=== PATIENT | female | born 1950 | race Two or more races ===

== ENCOUNTER 2017-03-14 09:28 | Day surgery (SDC) | payer MEDICARE, OTHER ==
--- NOTE | 2017-03-13 16:13 | Pre-Procedure Note/Attestation ---
Pre-Procedure Note/Attestation Complete Prior to Procedure Planned Procedure: left - Removal of cataract and placement of intraocular lens , left eye Procedure Narrative: Removal of cataract and placement of intraocular lens, left eye Indications for Procedure Pre-Operative Diagnosis: cataract, combined, left eye Attestation I attest that I discussed the nature of the procedure; its benefits; risks and complications; and alternatives (and the risks and benefits of such alternatives ), prior to the procedure, with the patient (or the patient's legal energy conservation representative). I attest that, if there was a reasonable possibility of needing a blood transfusion, the patient (or the patient's legal energy conservation representative) was given the [place] Department of [facility] Services standardized written summary, pursuant to the [place] Blood Safety Act ([place] Health and Safety Code # 1645, as amended). I attest that I re-evaluated the patient just prior to the surgery and that there has been no change in the patient's H&P, except as documented below: Alfredo Russell MD Mar 13, 2017 16:13
[~2017-03-14] VITALS: Ht 167.6 cm; Wt 65.8 kg
[2017-03-14] VITALS (9 sets, daily range): BP systolic 120–141; BP diastolic 76–87
[2017-03-14] MEDS ORDERED: Sterile Water Irrig 1000ml IRRIG ONE (09:29)
[2017-03-14] MEDS ORDERED: Propofol 200mg/20ml IV ONE (09:29)
[2017-03-14] MEDS ORDERED: Lidocaine 1% MPF 10mg/ml 5ml ONE ×2 (09:29→10:47)
[2017-03-14] MEDS ORDERED: LR 1000ml ONE (09:29)
[2017-03-14] MEDS ORDERED: Midazolam 2mg/2ml Inj ONE (09:29)
[2017-03-14] MEDS ORDERED: NS Irrig 1000ml ONE (09:29)
[2017-03-14] MEDS ORDERED: Vigamox Opth Soln 3ml ONE (09:51)
[2017-03-14] MEDS ORDERED: Cyclopentolate 1% Opth Sol 2ml ONE (09:51)
[2017-03-14] MEDS ORDERED: Phenylephrine 10% Opth Soln 5ml ONE (09:51)
[2017-03-14] MEDS ORDERED: Akten 3.5% 1ml Btl ONE (09:55)
[2017-03-14] MEDS ORDERED: Tropicamide 1% Opth 15ml Soln ONE (09:55)
[2017-03-14] MEDS: Vigamox Opth Soln 3ml LEFT EYE SCH ×3 (10:03→10:24)
[2017-03-14] MEDS: Akten 3.5% 1ml Btl LEFT EYE SCH ×3 (10:03→10:23)
[2017-03-14] MEDS: Cyclopentolate 1% Opth Sol 2ml LEFT EYE SCH ×3 (10:03→10:24)
[2017-03-14] MEDS: Phenylephrine 10% Opth Soln 5ml LEFT EYE SCH ×3 (10:04→10:24)
[2017-03-14] MEDS: Tropicamide 1% Opth 15ml Soln LEFT EYE SCH ×3 (10:04→10:23)
[2017-03-14] MEDS ORDERED: NKM (10:17)
[2017-03-14] MEDS ORDERED: Fluorescein Strips ONE (10:47)
[2017-03-14] MEDS ORDERED: Pred Forte 1% Opth Susp 1ml ONE (10:47)
[2017-03-14] MEDS ORDERED: Timolol 0.5% Op Soln 2.5ml ONE (10:47)
[2017-03-14] MEDS ORDERED: Maxitrol Opth Oint 3.5gm ONE (10:47)
[2017-03-14] MEDS ORDERED: BSS 500ml btl ONE ×2 (10:47→12:05)
[2017-03-14] MEDS ORDERED: Lidocaine 4% Amp ONE (10:48)
[2017-03-14] MEDS ORDERED: EPINEPHrine 1mg/1ml Amp ONE ×2 (10:48→12:05)
[2017-03-14] MEDS ORDERED: Carbachol 0.01% Op Soln 1.5ml vial ONE (10:48)
[2017-03-14] MEDS ORDERED: Tetracaine 0.5% Opth 4ml Soln ONE (10:48)
[2017-03-14] MEDS ORDERED: Povidone-Iodine 5% opth solution ONE (10:48)
[2017-03-14] MEDS ORDERED: Dexamethasone 4mg/ml vial ONE (10:48)
[2017-03-14] MEDS ORDERED: BSS 15ml BTL ONE (10:49)
[2017-03-14] MEDS ORDERED: Sodium Hyaluronate 10 mg/ml 0.85ml ONE ×2 (10:49→11:58)
[2017-03-14] MEDS ORDERED: Acetylcholine Injection (OR) ONE (10:49)
[2017-03-14] MEDS ORDERED: LR 1000ml 1,000 ML IVLG SCH (11:21)
--- NOTE | 2017-03-14 11:24 | Anethesia Preoperative Eval ---
Anesthesia Pre-op PMH/ROS General Date of Evaluation: Mar 14, 2017 Anesthesiologist: Kvng ASA Score: ASA 3 Mallampati Score Class I : Soft palate, uvula, fauces, pillars visible Class II: Soft palate, uvula, fauces visible Class III: Soft palate, base of uvula visible Class IV: Only hard plate visible Mallampati Classification: Class II Surgeon: Drew Diagnosis: Cataract OS Surgical Procedure: Cat Ext IOL OS Anesthesia History: none Family History: no anesthesia problems Allergies: Coded Allergies: No Known Allergies (Unverified , 03/13/17) Medications: see eMAR Past Medical History Cardiovascular: Reports: HTN Gastrointestinal/Genitourinary: Reports: other - Fibroids HEENT: Reports: cataract (L), cataract (R), [place] (L), [place] (R) PSxH Narrative: RICHARD Anesthesia Pre-op Phys. Exam Physician Exam Last Vital Signs Date Time Temp Pulse Resp B/P (MAP) Pulse Ox O2 Delivery O2 Flow Rate FiO2 03/14/17 10:13 98.7 73 18 141/87 98 Room Air Constitutional: NAD Neurologic: CN 2-12 intact Cardiovascular: RRR Respiratory: CTA Gastrointestinal: S/NT/ND Airway Exam Mallampati Score: Class II MO: full ROM: full Teeth: missing, intact Anesthesia Pre-op A/P Risk Assessment & Plan Assessment: ASA 3 Plan: GA Status Change Before Surgery: Cholo Mccartney MD Mar 14, 2017 11:24
--- NOTE | 2017-03-14 11:25 | 48 Hour Post Anesthesia Eval ---
Post Anesthesia Evaluation Procedure: Cat Ext IOL OS Date of Evaluation: Mar 14, 2017 Time of Evaluation: 14:42 Blood Pressure Systolic: 141 0: 89 Pulse Rate: 74 Respiratory Rate: 18 Temperature (Fahrenheit): 98.4 O2 Sat by Pulse Oximetry: 99 Airway: patent Nausea: No Vomiting: No Pain Intensity: 1 Hydration Status: adequate Cardiopulmonary Status: Stable Mental Status/LOC: patient returned to baseline Follow-up Care/Observations: 0 Post-Anesthesia Complications: 0 Follow-up care needed: ready to discharge Cholo Calderon MD Mar 14, 2017 11:25
--- NOTE | 2017-03-14 11:25 | Immediate Post-Op Evaluation ---
Immediate Post-Op Evalulation Immediate Post-Op Evalulation Procedure: Cat Ext IOL OS Date of Evaluation: Mar 14, 2017 Time of Evaluation: 12:22 IV Fluids: 1000 LR Blood Products: 0 Estimated Blood Loss: 1 Urinary Output: 0 Blood Pressure Systolic: 138 Blood Pressure Diastolic: 87 Pulse Rate: 72 Respiratory Rate: 16 O2 Sat by Pulse Oximetry: 100 Temperature (Fahrenheit): 97.5 Pain Score (1-10): 1 Nausea: No Vomiting: No Complications 0 Patient Status: awake, reacts, patent, none Hydration Status: adequate Cholo Calderon MD Mar 14, 2017 11:25
[2017-03-14] MEDS ORDERED: Midazolam 2mg/2ml Inj IVP PRN (11:30)
[2017-03-14] MEDS ORDERED: fentaNYL 100 mcg/2 mL IV PRN (11:30)
[2017-03-14] MEDS ORDERED: oxyCODONE HCL/Acetaminophen 5/325mg ORAL PRN (11:30)
[2017-03-14] MEDS ORDERED: LORazepam Inj 2mg/ml 1ml IV PRN (11:30)
[2017-03-14] MEDS ORDERED: Labetalol 5mg/ml 20ml vial IV PRN (11:30)
[2017-03-14] MEDS ORDERED: Norco 5mg/325mg tab ORAL PRN (11:30)
[2017-03-14] MEDS ORDERED: DiphenhydrAMINE 50mg/ml Inj IVP PRN (11:30)
[2017-03-14] MEDS ORDERED: Atropine Inj 1mg/10ml Syr IV PRN (11:30)
[2017-03-14] MEDS ORDERED: Ketorolac 60mg Inj IV PRN (11:30)
[2017-03-14] MEDS ORDERED: Hydromorphone 0.5mg/0.5ml inj IVP PRN (11:30)
[2017-03-14] MEDS ORDERED: Ketorolac 30mg Inj IV PRN (11:30)
[2017-03-14] MEDS ORDERED: HYDROcodone/Acetamin 7.5/325 tab ORAL PRN (11:30)
--- NOTE | 2017-03-14 12:22 | Discharge Instructions ---
Discharge Instructions Discharge Instructions Follow Up Orders Wear eye shield at all times except to place eye drops Continue pre op eye drops Followup in Dr Russell's office tomorrow For Congestive Heart Failure Reminder Report to your physician any weight gain of 5 pounds or more in one week. Alfredo Russell MD Mar 14, 2017 12:22
--- NOTE | 2017-03-14 12:24 | Brief Operative Note ---
Immediate Post Operative Note Operative Note Pre-op Diagnosis: cataract, combined, left eye Procedure: Phaco pc iol, OS Post-op Diagnosis: same as pre-op Surgeon: Sundeep Russell MD Brush Finisher: none Anesthesiologist: Dr Rodriguez Anesthesia: local, MAC Specimen: none Complications: none Fluids: minimal Estimated Blood Loss: minimal Implant(s) used?: Yes - singletary zcb00 25.0 Alfredo Russell MD Mar 14, 2017 12:24
--- NOTE | 2017-03-20 10:15 | Operative Note - Dictated ---
DATE OF OPERATION: 03/14/2017 SURGEON: Alfredo Russell M.D. CUT PRESSMAN SURGEON: None. ANESTHESIOLOGIST: Cholo Calderon M.D. ANESTHESIA: Local/standby/monitored anesthesia care. PREOPERATIVE DIAGNOSIS: Cataract, nuclear, cortical, left eye. POSTOPERATIVE DIAGNOSIS: Cataract, nuclear, cortical, left eye. PROCEDURE: 1. Phacoemulsification of cataract, left eye. 2. Placement of posterior chamber intraocular lens, left eye (model Nair ZCB00, power 25.0). SPECIMENS: None. COMPLICATIONS: None. INDICATIONS FOR SURGERY: The patient has had painless progressive decrease in visual acuity in the left eye secondary to cataract. The patient understands the risks of surgery including infection, bleeding, need for further surgery, loss of vision, no improvement in vision, loss of the eye, loss of life, glaucoma, retinal detachment, understands these risks and elected to proceed with surgery. FINDINGS: The patient had a +3 nuclear sclerotic cataract as well as +2 cortical cataract. OPERATIVE NOTE: After informed consent was obtained, the patient was brought into the operating room and placed in supine position. Cardiac and respiratory monitors were attached. A time-out was performed and all criteria were met and everyone in the room agreed. The left eye was then draped and prepped in sterile manner for ocular surgery. A lid speculum was placed in the eye. A 1% lidocaine preservative-free was injected at the 2 o'clock limbus. A conjunctiva peritomy from approximately 1:30 to 2:30 was made and dissected posteriorly. Hemostasis was maintained with bipolar cautery. A 2.8 mm limbal incision was made centered approximately 2 o'clock and dissected anteriorly. A paracentesis was made at approximately 5:30 and Shugarcaine was injected into the anterior chamber followed by Healon. The anterior chamber was then entered using a 2.6 mm keratome through the limbal incision. An anterior capsulorrhexis was then performed. Hydrodissection and hydrodelineation of the lens was then performed. The lens was then phacoemulsified using a divide and conquer four-quadrant technique. Residual cortical material was then aspirated. Healon was injected into the anterior chamber and capsular bag. The lens was taken from its package, placed into the cartridge, and the tip of the cartridge was placed through the limbal incision and the lens was injected into the capsular bag and centered nicely with a Sinskey hook. Healon was then aspirated from the anterior chamber and capsular bag. The lens was checked and noted to have the optic and both haptics within the capsular bag. The wound was checked and found to be watertight. The conjunctiva was then closed with forceps cautery. The lid speculum and drapes removed from the eye. Drops of ciprofloxacin and Pred Forte were applied to the eye followed by a drop of diluted Betadine, which was then irrigated and then Maxitrol ointment was applied to the eye and then a shield. The patient tolerated the procedure well and left the operating room awake, alert, and in stable condition. Alfredo Russell M.D. DR: GLORIA JOB#: [id number] CC:
== END 2017-03-14 14:10 | disposition home or self-care (01) ==
LOC: SUR 09:28
DX: H25.12 Age-related nuclear cataract, left eye (principal); H25.012 Cortical age-related cataract, left eye; I10 Essential (primary) hypertension
CPT/HCPCS: 66984; J0171; J1100; J2250; J2704; J7120; V2632; 94003; 94150

== ENCOUNTER 2017-06-20 09:59 | Day surgery (SDC) | payer MEDICARE, OTHER ==
--- NOTE | 2017-06-19 23:20 | Pre-Procedure Note/Attestation ---
Pre-Procedure Note/Attestation Complete Prior to Procedure Planned Procedure: right - Removal of cataract and placement of intraocular lens, right eye Procedure Narrative: Removal of cataract and placement of intraocular lens, right eye Indications for Procedure Pre-Operative Diagnosis: Cataract, combined, right eye Attestation I attest that I discussed the nature of the procedure; its benefits; risks and complications; and alternatives (and the risks and benefits of such alternatives ), prior to the procedure, with the patient (or the patient's legal enrollment representative). I attest that, if there was a reasonable possibility of needing a blood transfusion, the patient (or the patient's legal enrollment representative) was given the [place] Department of Health Services standardized written summary, pursuant to the [place] Blood Safety Act ([place] Health and Safety Code # 1645, as amended). I attest that I re-evaluated the patient just prior to the surgery and that there has been no change in the patient's H&P, except as documented below: Alfredo Russell MD Jun 19, 2017 23:20
[2017-06-20] VITALS (9 sets, daily range): BP systolic 140–161; BP diastolic 82–92
[~2017-06-20] VITALS: Ht 167.6 cm; Wt 65.8 kg
[~2017-06-20 09:59] MED LIST: NKM; Pred Forte 1% Opth Susp 1ml RIGHT EYE ONE
[2017-06-20] MEDS ORDERED: Pred Forte 1% Opth Susp 1ml ONE (11:05)
[2017-06-20] MEDS ORDERED: Phenylephrine 10% Opth Soln 5ml ONE (11:05)
[2017-06-20] MEDS ORDERED: Akten 3.5% 1ml Btl ONE (11:05)
[2017-06-20] MEDS ORDERED: Cyclopentolate 1% Opth Sol 2ml ONE (11:05)
[2017-06-20] MEDS ORDERED: Ciprofloxacin Opth Soln 2.5ml ONE (11:05)
[2017-06-20] MEDS ORDERED: Tropicamide 1% Opth 15ml Soln ONE (11:12)
[2017-06-20] MEDS: Akten 3.5% 1ml Btl RIGHT EYE SCH ×3 (11:15→11:27)
[2017-06-20] MEDS: Tropicamide 1% Opth 15ml Soln RIGHT EYE SCH ×3 (11:15→11:26)
[2017-06-20] MEDS: Phenylephrine 10% Opth Soln 5ml RIGHT EYE SCH ×3 (11:15→11:26)
[2017-06-20] MEDS: Cyclopentolate 1% Opth Sol 2ml RIGHT EYE SCH ×3 (11:15→11:26)
[2017-06-20] MEDS: Ciprofloxacin Opth Soln 2.5ml RIGHT EYE SCH ×3 (11:15→11:26)
[2017-06-20] MEDS ORDERED: Midazolam 2mg/2ml Inj ONE (14:57)
[2017-06-20] MEDS ORDERED: LR 1000ml ONE (15:00)
[2017-06-20] MEDS ORDERED: Sterile Water Irrig 1000ml IRRIG ONE (15:00)
[2017-06-20] MEDS ORDERED: NS Irrig 1000ml ONE (15:00)
[2017-06-20] MEDS ORDERED: Alfentanil 2ml Inj ONE (15:00)
[2017-06-20] MEDS ORDERED: Propofol 200mg/20ml IV ONE (15:00)
[2017-06-20] MEDS ORDERED: LR 1000ml 1,000 ML IVLG SCH (15:08)
[2017-06-20] MEDS ORDERED: LORazepam Inj 2mg/ml 1ml IV PRN (15:15)
[2017-06-20] MEDS ORDERED: Ketorolac 30mg Inj IV PRN ×2 (15:15)
[2017-06-20] MEDS ORDERED: oxyCODONE HCL/Acetaminophen 5/325mg ORAL PRN (15:15)
[2017-06-20] MEDS ORDERED: Hydromorphone 0.5mg/0.5ml inj IVP PRN (15:15)
[2017-06-20] MEDS ORDERED: DiphenhydrAMINE 50mg/ml Inj IVP PRN (15:15)
[2017-06-20] MEDS ORDERED: Norco 5mg/325mg tab ORAL PRN (15:15)
[2017-06-20] MEDS ORDERED: Labetalol 5mg/ml 20ml vial IV PRN (15:15)
[2017-06-20] MEDS ORDERED: fentaNYL 100 mcg/2 mL IV PRN (15:15)
[2017-06-20] MEDS ORDERED: Atropine Inj 1mg/10ml Syr IV PRN (15:15)
[2017-06-20] MEDS ORDERED: Midazolam 2mg/2ml Inj IVP PRN (15:15)
[2017-06-20] MEDS ORDERED: HYDROcodone/Acetamin 7.5/325 tab ORAL PRN (15:15)
--- NOTE | 2017-06-20 15:16 | Anethesia Preoperative Eval ---
Anesthesia Pre-op PMH/ROS General Date of Evaluation: Jun 20, 2017 Time of Evaluation: 14:54 Anesthesiologist: Kvng ASA Score: ASA 2 Mallampati Score Class I : Soft palate, uvula, fauces, pillars visible Class II: Soft palate, uvula, fauces visible Class III: Soft palate, base of uvula visible Class IV: Only hard plate visible Mallampati Classification: Class II Surgeon: Drew Diagnosis: Cat OD Surgical Procedure: Cat Ext IOL OD Anesthesia History: none Family History: no anesthesia problems Allergies: Coded Allergies: No Known Allergies (Unverified , 06/20/17) Medications: see eMAR Past Medical History Neurologic/Psychiatric: Reports: depression/anxiety HEENT: Reports: cataract (L), cataract (R), [place] (L) PSxH Narrative: RICHARD, Myomectomy Anesthesia Pre-op Phys. Exam Physician Exam Last Vital Signs Date Time Temp Pulse Resp B/P (MAP) Pulse Ox O2 Delivery O2 Flow Rate FiO2 06/20/17 11:19 97.9 66 18 141/85 96 Room Air 97.9 Constitutional: NAD Neurologic: CN 2-12 intact Cardiovascular: RRR Respiratory: CTA Gastrointestinal: S/NT/ND Airway Exam Mallampati Score: Class II MO: full ROM: full Teeth: intact Anesthesia Pre-op A/P Risk Assessment & Plan Assessment: ASA 2 Plan: TIVA Status Change Before Surgery: Cholo Mccartney MD Jun 20, 2017 15:16
[2017-06-20] MEDS ORDERED: Lidocaine 1% MPF 10mg/ml 5ml ONE (15:17)
--- NOTE | 2017-06-20 15:18 | 48 Hour Post Anesthesia Eval ---
Post Anesthesia Evaluation Procedure: Cat Ext IOL OD Date of Evaluation: Jun 20, 2017 Time of Evaluation: 18:23 Blood Pressure Systolic: 148 0: 91 Pulse Rate: 76 Respiratory Rate: 18 Temperature (Fahrenheit): 97.9 O2 Sat by Pulse Oximetry: 100 Airway: patent Nausea: No Vomiting: No Pain Intensity: 1 Hydration Status: adequate Cardiopulmonary Status: Stable Mental Status/LOC: patient returned to baseline Follow-up Care/Observations: 0 Post-Anesthesia Complications: 0 Follow-up care needed: ready to discharge Cholo Calderon MD Jun 20, 2017 15:18
--- NOTE | 2017-06-20 15:18 | Immediate Post-Op Evaluation ---
Immediate Post-Op Evalulation Immediate Post-Op Evalulation Procedure: Cat Ext IOL OD Date of Evaluation: Jun 20, 2017 Time of Evaluation: 16:18 IV Fluids: 300 LR Blood Products: 0 Estimated Blood Loss: 1 Urinary Output: 0 Blood Pressure Systolic: 155 Blood Pressure Diastolic: 92 Pulse Rate: 71 Respiratory Rate: 16 O2 Sat by Pulse Oximetry: 100 Temperature (Fahrenheit): 97.9 Pain Score (1-10): 1 Nausea: No Vomiting: No Complications 0 Patient Status: awake, patent, none Hydration Status: adequate Cholo Calderon MD Jun 20, 2017 15:18
[2017-06-20] MEDS ORDERED: Dexamethasone 4mg/ml vial ONE (15:19)
[2017-06-20] MEDS ORDERED: EPINEPHrine 1mg/1ml Amp ONE (15:19)
[2017-06-20] MEDS ORDERED: Lidocaine 4% Amp ONE (15:19)
[2017-06-20] MEDS ORDERED: Maxitrol Opth Oint 3.5gm ONE (15:19)
[2017-06-20] MEDS ORDERED: BSS 15ml BTL ONE (15:20)
[2017-06-20] MEDS ORDERED: BSS 500ml btl ONE (15:20)
[2017-06-20] MEDS ORDERED: Tetracaine 0.5% Opth 4ml Soln ONE (15:20)
[2017-06-20] MEDS ORDERED: Povidone-Iodine 5% opth solution ONE (15:20)
[2017-06-20] MEDS ORDERED: Sodium Hyaluronate 10 mg/ml 0.85ml ONE ×2 (15:20→15:44)
--- NOTE | 2017-06-20 16:08 | Discharge Instructions ---
Discharge Instructions Discharge Instructions Follow Up Orders Wear shield at all times except to place eye drops Continue preoperative eye drops Followup tomorrow in Dr Russell's office at 12:00 Return to Work/School on: Jun 20, 2017 For Congestive Heart Failure Reminder Report to your physician any weight gain of 5 pounds or more in one week. Alfredo Russlel MD Jun 20, 2017 16:08
--- NOTE | 2017-06-20 16:10 | Brief Operative Note ---
Immediate Post Operative Note Operative Note Pre-op Diagnosis: Cataract, combined, right eye Procedure: Phaco PC IOL, OD Post-op Diagnosis: same as pre-op Surgeon: Sundeep Russell MD Attraction Attendant: none Anesthesiologist: Dr Calderon Anesthesia: local, MAC Specimen: none Complications: none Condition: stable Fluids: as noted Implant(s) used?: Yes - tectabatha zcb00 22.5 Alfredo Russell MD Jun 20, 2017 16:10
--- NOTE | 2017-06-22 19:30 | Operative Note - Dictated ---
DATE OF OPERATION: 06/20/2017 SURGEON: Alfredo Russell M.D. LABOR COMMISSIONER SURGEON: None. ANESTHESIOLOGIST: Cholo Calderon M.D. ANESTHESIA: Local/standby/monitored anesthesia care. PREOPERATIVE DIAGNOSIS: Cataract, combined, right eye. POSTOPERATIVE DIAGNOSIS: Cataract, combined, right eye. PROCEDURES: 1. Phacoemulsification of cataract, right eye. 2. Placement of posterior chamber intraocular lens, right eye (model ZCB00, power 22.5). SPECIMENS: None. COMPLICATIONS: None. INDICATION FOR SURGERY: The patient has had the painless progressive decrease in visual acuity in the right eye secondary to the cataract. The patient understands the risk of surgery including infection, bleeding, need for further surgery, loss of vision, no improvement in vision, loss of the eye, loss of life, glaucoma, retinal detachment, and understands these risks and elects to proceed with surgery. FINDINGS: The patient had a +2 to +3 nuclear cataract as well as a +2 cortical cataract. OPERATIVE NOTE: After informed consent was obtained, the patient was brought into the operating room and placed in the supine position. Cardiac and respiratory monitors were attached. A time-out was performed and all criteria were met and everyone in the room agreed. The right eye was then draped and prepped in sterile manner for ocular surgery. A lid speculum was placed in the eye. A 1% lidocaine preservative-free was injected at the approximate 9 o'clock limbus. A conjunctival peritomy from approximately 8:30 to 9:30 was made and dissected posteriorly. Hemostasis was maintained with bipolar cautery. A 2.8 mm limbal incision was made centered at approximately 9 o'clock and dissected anteriorly. A paracentesis was made at 12 o'clock. Shugarcaine was injected into the anterior chamber followed by Healon. The anterior chamber was then entered using a 2.8 mm keratome through the limbal incision. An anterior capsulorrhexis was then performed. Hydrodissection and hydrodelineation of the lens was then performed. The lens was then phacoemulsified using divide and conquer four-quadrant technique. Residual cortical material was then aspirated. The lens was taken from its package, placed into the cartridge, and Healon was injected into the capsular bag and anterior chamber. The tip of the cartridge was placed through the limbal incision and the lens was injected into the capsular bag and centered nicely with a Sinskey hook. Healon was aspirated from the anterior chamber and capsular bag. One 10-0 nylon interrupted suture was placed through the limbal incision and the wound also hydrated and closed as well as the paracentesis. The lens was noted to have both haptics as well as the optic in the capsular bag and the intraocular lens was aligned along the 180 degree meridian. Alfredo Russell M.D. DR: JIGNA JOB#: [id number] CC:
== END 2017-06-20 17:46 | disposition home or self-care (01) ==
LOC: SUR 09:59
DX: H25.11 Age-related nuclear cataract, right eye (principal); H25.011 Cortical age-related cataract, right eye; F32.9 Major depressive disorder, single episode, unspecified; F41.9 Anxiety disorder, unspecified
CPT/HCPCS: 66984; J0171; J1100; J2250; J2704; J3490; J7120; V2632; 94003; 94150

== ENCOUNTER 2018-04-03 10:19 | Day surgery (SDC) | payer MEDICARE, OTHER ==
[2018-04-03] VITALS (11 sets, daily range): BP systolic 128–141; BP diastolic 83–92
[~2018-04-03] VITALS: Ht 165.1 cm; Wt 65.8 kg
--- NOTE | 2018-04-03 09:12 | Pre-Procedure Note/Attestation ---
Pre-Procedure Note/Attestation Complete Prior to Procedure Planned Procedure: right Procedure Narrative: Hammertoe correction fourth right digit Indications for Procedure Pre-Operative Diagnosis: Hammertoe deformity fourth right digit Attestation I attest that I discussed the nature of the procedure; its benefits; risks and complications; and alternatives (and the risks and benefits of such alternatives ), prior to the procedure, with the patient (or the patient's legal field marketing representative). I attest that, if there was a reasonable possibility of needing a blood transfusion, the patient (or the patient's legal field marketing representative) was given the [facility] standardized written summary, pursuant to the [place] Blood Safety Act ([place] Health and Safety Code # 1645, as amended). I attest that I re-evaluated the patient just prior to the surgery and that there has been no change in the patient's H&P, except as documented below: Boni Mayorga DPM Apr 03, 2018 09:12
[~2018-04-03 10:19] MED LIST changes: -Pred Forte 1% Opth Susp 1ml RIGHT EYE ONE
--- NOTE | 2018-04-03 10:23 | Anethesia Preoperative Eval ---
Anesthesia Pre-op PMH/ROS General Date of Evaluation: Apr 03, 2018 Anesthesiologist: Robert ASA Score: ASA 2 Mallampati Score Class I : Soft palate, uvula, fauces, pillars visible Class II: Soft palate, uvula, fauces visible Class III: Soft palate, base of uvula visible Class IV: Only hard plate visible Mallampati Classification: Class II Surgeon: Mukesh Diagnosis: Right hammertoe 4th digit Surgical Procedure: Right hammertoe correction, 4th digit Anesthesia History: none Family History: no anesthesia problems Allergies: Coded Allergies: No Known Allergies (Unverified , 06/20/17) Medications: see eMAR Patient NPO?: Yes NPO Date: Apr 03, 2018 NPO Time: 20:00 Past Medical History Cardiovascular: Denies: HTN, CAD, NM, valve dz, arrhythmia, other Pulmonary: Denies: asthma, COPD, [place], other Gastrointestinal/Genitourinary: Denies: GERD, CRI, ESRD, other Neurologic/Psychiatric: Reports: depression/anxiety; Denies: dementia, CVA, TIA, other Endocrine: Denies: DM, hypothyroidism, steroids, other HEENT: Reports: [place] (L); Denies: cataract (L), cataract (R), glaucoma, [place] (R), other Hematology/Immune: Denies: anemia, DVT, bleeding disorder, other Musculoskeletal/Integumentary: Denies: OA, RA, DJD, DDD, edema, other PSxH Narrative: RICHARD, bilateral cataract sx Anesthesia Pre-op Phys. Exam Physician Exam see chart Constitutional: NAD Cardiovascular: RRR Respiratory: CTA Airway Exam Mallampati Score: Class II MO: full ROM: full Teeth: intact Anesthesia Pre-op A/P Labs see chart Studies Pre-op Studies: EKG - sr Risk Assessment & Plan Assessment: ASA II Plan: MAC Status Change Before Surgery: No Pre-Antibiotics Drug: Ancef 1g Given Within 1 Hr of Incision: Yes Christiane Figueroa MD Apr 03, 2018 10:23
[2018-04-03] MEDS ORDERED: Bupivacaine 0.5% 10ml INJ ONE (10:39)
[2018-04-03] MEDS ORDERED: Lidocaine 1% Plain 30 ml INJ ONE (10:39)
[2018-04-03] MEDS ORDERED: Dexamethasone 4mg/ml vial ONE (10:39)
[2018-04-03] MEDS ORDERED: WELLBUTRIN SR100 MG ORAL (10:57)
[2018-04-03] MEDS ORDERED: Lidocaine 1% MPF 10mg/ml 5ml ONE (11:24)
[2018-04-03] MEDS ORDERED: Propofol 200mg/20ml IV ONE (11:24)
[2018-04-03] MEDS ORDERED: fentaNYL 100 mcg/2 mL IV PRN (11:30)
[2018-04-03] MEDS ORDERED: Hydromorphone 0.5mg/0.5ml inj IVP PRN (11:30)
[2018-04-03] MEDS ORDERED: LR 1000ml ONE (11:30)
[2018-04-03] MEDS ORDERED: Midazolam 2mg/2ml Inj IVP PRN (11:30)
[2018-04-03] MEDS ORDERED: Metoclopramide 10mg/2ml Inj IVP PRN (11:30)
[2018-04-03] MEDS ORDERED: LORazepam Inj 2mg/ml 1ml IV PRN (11:30)
[2018-04-03] MEDS ORDERED: Sterile Water Irrig 1000ml IRRIG ONE (11:30)
[2018-04-03] MEDS ORDERED: Ketorolac 30mg Inj IV PRN (11:30)
[2018-04-03] MEDS ORDERED: NS Irrig 1000ml ONE (11:30)
[2018-04-03] MEDS ORDERED: LR 1000ml 1,000 ML IVLG SCH (11:30)
[2018-04-03] MEDS ORDERED: DiphenhydrAMINE 50mg/ml Inj IVP PRN (11:30)
--- NOTE | 2018-04-03 12:21 | Brief Operative Note ---
Immediate Post Operative Note Operative Note Pre-op Diagnosis: Hammertoe deformity fourth right digit Procedure: Hammetoe correction fourth right digit Post-op Diagnosis: same as pre-op Surgeon: Mukesh Anesthesiologist: Kamlesh Anesthesia: moderate sedation Specimen: yes Complications: none Condition: stable Fluids: 250 Estimated Blood Loss: none Drains: none Implant(s) used?: Yes Boni Mayorga DPM Apr 03, 2018 12:20
--- NOTE | 2018-04-03 12:27 | Immediate Post-Op Evaluation ---
Immediate Post-Op Evalulation Immediate Post-Op Evalulation Procedure: Right foot hammertoe correction 4th digit Date of Evaluation: Apr 03, 2018 Time of Evaluation: 12:26 IV Fluids: 500 Blood Products: 0 Estimated Blood Loss: min Urinary Output: 0 Blood Pressure Systolic: 140 Blood Pressure Diastolic: 92 Pulse Rate: 77 Respiratory Rate: 16 O2 Sat by Pulse Oximetry: 100 Temperature (Fahrenheit): 97.2 Pain Score (1-10): 0 Nausea: No Vomiting: No Complications 0 Patient Status: awake, reacts, patent, none Hydration Status: adequate Drug: Ancef 1g Given Within 1 Hr of Incision: Yes Time Given: 11:30 Christiane Figueroa MD Apr 03, 2018 12:27
--- NOTE | 2018-04-03 12:28 | 48 Hour Post Anesthesia Eval ---
Post Anesthesia Evaluation Procedure: Right foot hammertoe correction 4th digit Date of Evaluation: Apr 03, 2018 Airway: patent Nausea: No Vomiting: No Pain Intensity: 0 Hydration Status: adequate Cardiopulmonary Status: at baseline Mental Status/LOC: patient returned to baseline Post-Anesthesia Complications: 0 Follow-up care needed: ready to discharge Christiane Figueroa MD Apr 03, 2018 12:28
--- NOTE | 2018-04-03 16:15 | Diagnostic Imaging Report ---
Indication: Foot Pain Comparison: None Findings: 3 views of the right foot were obtained. Postsurgical film showing resection of the head of the fourth proximal phalange with a fixation screw traversing the PIP joint. Postsurgical changes that are probably old involving the distal part of the second proximal phalange also noted. IMPRESSION: Postop confirmation films
--- NOTE | 2018-04-03 19:00 | Operative Note - Dictated ---
DATE OF OPERATION: 04/03/2018 SURGEON: Boni Mayorga D.P.M. ANESTHESIOLOGIST: Dr. Whitlock. ANESTHESIA: Local standby. PREOPERATIVE DIAGNOSIS: Hammertoe deformity, fourth right digit. POSTOPERATIVE DIAGNOSIS: Hammertoe deformity, fourth right digit. PROCEDURES PERFORMED: Hammertoe correction of fourth right digit. DESCRIPTION OF THE OPERATION: The patient was brought to the operating room and was placed on the operating room table in the supine position. Intravenous sedation was administered by the anesthesiologist. Local anesthesia consisting of 0.5% Marcaine plain, total of 5 mL was administered to the fourth right digit. An ankle tourniquet was applied to the right lower extremity. The foot was prepped and draped in the usual sterile manner. An Esmarch bandage was utilized to exsanguinate the blood and the right ankle tourniquet was inflated to 250 mmHg. Attention was then directed to the fourth right digit where approximately a 4 cm dorsal linear skin incision was performed centered over the proximal interphalangeal joint. The incision was deepened utilizing sharp and blunt dissection with care being taken to cauterize and ligate all bleeders. At the level of the fourth proximal phalanx head, transverse tenotomy was performed. The extensor tendon was reflected proximally and the distal aspect of the proximal phalanx was exposed. Utilizing a sagittal saw, a small section was resected from the bone. The wound was copiously flushed utilizing sterile saline. At this point, the cartilage was removed from the proximal aspect of the intermediate phalanx. Utilizing a K-wire, two guide holes into the proximal phalanx and the intermediate phalanx were then performed. At this point, proximal interphalangeal joint implant from Arthro surface was inserted and the toe was used into rectus position. The wound was copiously flushed utilizing sterile saline. Extensor tendon was then reapproximated utilizing 4-0 Vicryl in a simple interrupted type stitch. The skin was then reapproximated utilizing 4-0 nylon in a simple interrupted type stitch. The wound was dressed utilizing an Adaptic 2 x 2 gauze and 3 inch Muna. The right ankle tourniquet was deflated and vascular supply was noted to all digits to right foot. The patient tolerated the procedure well and left the operating room to recovery room with all vital signs stable. Boni Mayorga D.P.M. DR: Tiffany JOB#: [id number] CC:
--- NOTE | 2018-04-03 19:15 | History and Physical Report ---
DATE OF ADMISSION: 04/03/2018 PODIATRIC HISTORY AND PHYSICAL HISTORY OF PRESENT ILLNESS: This is a 68-year-old white female that is admitted today for elective right foot surgery. The patient has been complaining of pain from her fourth right digit for the past several months. She underwent a hammertoe correction of that toe more than 15 years ago and the digit had deviated into the current deformity. The patient attempted padding and shoe-gear modification without any relief of the pain. PAST MEDICAL HISTORY: Remarkable for bipolar disorder and hypothyroidism. MEDICATIONS: Synthroid and Abilify. ALLERGIES: No known drug allergies. PODIATRIC PHYSICAL EXAMINATION: VASCULAR: The dorsalis pedis and posterior tibial arteries are equally palpable measuring 2/4 bilaterally. The capillary filling time is less than 4 seconds to all digits bilaterally. Mild varicosities are noted in bilateral lower extremities. Homans sign is negative. NEUROLOGICAL: Reveals intact reflexes, Achilles, and patella bilaterally measuring 2/4. Babinski is negative. Clonus is absent bilaterally. Sharp, dull, and vibratory sensations are all intact in bilateral lower extremities. 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 There is also lateral deviation of the second right digit. Joints range of motion is reduced to the forefoot with mild crepitations noted. DERMATOLOGICAL: Reveals hyperkeratotic skin at the distal aspect of the fourth right digit. All nails are present and healthy bilaterally. There are scars from prior surgeries noted bilaterally. ASSESSMENT: Hammertoe deformity, fourth right digit. PLAN: The patient is admitted today for hammertoe correction of her fourth right digit. Risks, complications, and alternatives were discussed with the patient. Postoperative instructions were given. Postoperative medications were dispensed to the patient. The patient elected to proceed with surgery. Boni Mayorga D.P.M. DR: BENNIE JOB#: [id number] CC:
== END 2018-04-03 15:00 | disposition home or self-care (01) ==
LOC: SUR 10:19
DX: M20.41 Other hammer toe(s) (acquired), right foot (principal); E03.9 Hypothyroidism, unspecified; E78.5 Hyperlipidemia, unspecified; F41.9 Anxiety disorder, unspecified; F31.9 Bipolar disorder, unspecified; H91.90 Unspecified hearing loss, unspecified ear; Z90.710 Acquired absence of both cervix and uterus
CPT/HCPCS: 28285; 73630; J0690; J2001; J2704; J3490

== ENCOUNTER 2019-05-14 10:58 | Emergency (ER) | payer MEDICARE, OTHER ==
[~2019-05-14] VITALS: Ht 165.1 cm; Wt 61.2 kg
[~2019-05-14 10:58] MED LIST changes: +WELLBUTRIN SR100 MG ORAL
--- NOTE | 2019-05-14 11:14 | NUR ---
ED Nurse Note: Pt walked into ED w/ c/o bug bite 5th digit L hand sfor 2 days. Pt was walking outside when bug bit hand. Pain is 3/10. Pt finger is red and swollen, tender to touch. Pt is alert and orientedx4, ambulatory.
[2019-05-14 11:16] VITALS: BP 152/97
[2019-05-14] MEDS ORDERED: PREDNISONE20 MG ORAL (12:27)
[2019-05-14] MEDS ORDERED: CEPHALEXIN500 MG ORAL (12:27)
--- NOTE | 2019-05-14 12:27 | Emergency Room Report ---
History of Present Illness General Chief Complaint: Skin Rash/Abscess Source: Patient Present Illness HPI 69-year-old female with no significant past medical history here complaining of hand swelling and warm to touch after possible insect bite x3 days. Complains of pruritus as well. Denies any fall or injury. Has not taken medication for symptom relief. Denies any fever and chills, recent travel, URI symptoms. Is sitting comfortably with stable vital signs. Has full range of motion, no bony tenderness noted, neurovascularly intact. COVID-19 risk:Travel to affect: No Allergies: Coded Allergies: No Known Allergies (Unverified , 06/20/17) Patient History Past Medical History: see triage record Past Surgical History: none Pertinent Family History: none Now: No Immunizations: UTD Reviewed Nursing Documentation: PMH: Agreed; PSxH: Agreed Nursing Documentation-PMH Past Medical History: No Stated History Hx Cardiac Problems: No Hx Cancer: No Hx Gastrointestinal Problems: No Hx Neurological Problems: No Review of Systems All Other Systems: negative except mentioned in HPI Physical Exam Vital Signs Date Time Temp Pulse Resp B/P (MAP) Pulse Ox O2 Delivery O2 Flow Rate FiO2 05/14/19 11:05 97.5 68 16 160/100 (120) 98 Room Air Sp02 EP Interpretation: reviewed, normal General Appearance: no apparent distress, alert, GCS 15, non-toxic Head: normocephalic, atraumatic Eyes: bilateral eye normal inspection, bilateral eye PERRL ENT: hearing grossly normal, normal pharynx, no angioedema, normal voice Neck: full range of motion, supple/symm/no masses Respiratory: lungs clear, no rhonchi, no wheezing Cardiovascular #1: regular rate, rhythm, no edema, no murmur Cardiovascular #2: 2+ radial (R), 2+ radial (L) Gastrointestinal: normal bowel sounds, non tender, soft, non-distended, no guarding, no rebound Genitourinary: no CVA tenderness Musculoskeletal: back normal, swelling - Left fifth finger Neurologic: alert, motor strength/tone normal, oriented x3, sensory intact, responsive, speech normal Psychiatric: judgement/insight normal, memory normal, mood/affect normal, no suicidal/homicidal ideation Skin: other - Cellulitis of left fifth finger Lymphatic: no adenopathy Medical Decision Making PA Attestation All my diagnosis and treatment plans were reviewed ad discussed with my supervising physician Dr. Warren Diagnostic Impression: Primary Impression: Cellulitis of hand ER Course 69-year-old female with no significant past medical history here complaining of hand swelling and warm to touch after possible insect bite x3 days. Complains of pruritus as well. Denies any fall or injury. Has not taken medication for symptom relief. Denies any fever and chills, recent travel, URI symptoms. Is sitting comfortably with stable vital signs. Has full range of motion, no bony tenderness noted, neurovascularly intact. Ddx considered but are not limited to : Cellulitis, superficial infection, abscess Vital signs: are WNL, pt. is afebrile H&PE are most consistent with: Cellulitis of left hand secondary to possible insect bite ORDERS: Keflex, prednisone ED INTERVENTIONS: None required at this time. DISCHARGE: At this time pt. is stable for d/c to home. Will provide printed patient care instructions, and any necessary prescriptions. Care plan and follow up instructions have been discussed with the patient prior to discharge. Take medication as directed, follow-up primary care doctor, if worsening symptoms return to the emergency room Last Vital Signs Date Time Temp Pulse Resp B/P (MAP) Pulse Ox O2 Delivery O2 Flow Rate FiO2 05/14/19 11:16 97.5 75 18 152/97 97 Room Air Disposition: HOME, SELF-CARE Condition: Stable Scripts Prednisone* (PREDNISONE*) 20 Mg Tablet 40 MG ORAL DAILY for 5 Days, #10 TAB Prov: Kalia Nascimento 05/14/19 Cephalexin* (KEFLEX*) 500 Mg Capsule 500 MG ORAL EVERY 6 HOURS for 7 Days, #28 CAP Prov: Kalia Nascimento 05/14/19 Referrals: NOT CHOSEN IPA/,REFERRING (PCP) Patient Instructions: Cellulitis, [id number] Additional Instructions: Take medication as been prescribed, follow-up with primary care provider, increase oral hydration, if worsening symptoms return to the emergency room Kalia Nascimento May 14, 2019 12:27
--- NOTE | 2019-05-14 12:41 | NUR ---
ER DISCHARGE NOTE: Patient is cleared to be discharged per ERMD, pt is aox4, on room air, with stable vital signs. pt was given dc and prescription instructions, pt was able to verbalize understanding, pt id band removed. pt is able to ambulate with steady gait. pt took all belongings.
[2019-05-14 12:43] VITALS: BP 146/92
== END 2019-05-14 12:41 | disposition home or self-care (01) ==
LOC: EMR 12:05
DX: L03.114 Cellulitis of left upper limb (principal)
CPT/HCPCS: 99282

== ENCOUNTER 2020-01-28 07:03 | Day surgery (SDC) | payer MEDICARE, OTHER ==
[~2020-01-28] VITALS: Ht 157.5 cm; Wt 68.0 kg
[2020-01-28] VITALS (8 sets, daily range): BP systolic 103–122; BP diastolic 68–75
[~2020-01-28 07:03] MED LIST changes: +CEPHALEXIN500 MG ORAL; +PREDNISONE20 MG ORAL
[2020-01-28] MEDS ORDERED: Bupivacaine 0.5% Inj 30 ml vial INJ ONE (07:49)
[2020-01-28] MEDS ORDERED: Midazolam 2mg/2ml Inj ONE (08:08)
[2020-01-28] MEDS ORDERED: fentaNYL 100 mcg/2 mL IV ONE (08:08)
--- NOTE | 2020-01-28 08:29 | Pre-Procedure Note/Attestation ---
Pre-Procedure Note/Attestation Complete Prior to Procedure Planned Procedure: right Procedure Narrative: Hammertoe correction fifth right digit Indications for Procedure Pre-Operative Diagnosis: Hammertoe deformity fifth right digit Attestation I attest that I discussed the nature of the procedure; its benefits; risks and complications; and alternatives (and the risks and benefits of such alternatives), prior to the procedure, with the patient (or the patient's legal fulfillment representative). I attest that, if there was a reasonable possibility of needing a blood transfusion, the patient (or the patient's legal fulfillment representative) was given the [facility] standardized written summary, pursuant to the [place] Blood Safety Act ([place] Health and Safety Code # 1645, as amended). I attest that I re-evaluated the patient just prior to the surgery and that there has been no change in the patient's H&P, except as documented below: Boni Mayorga DPM Jan 28, 2020 08:29
[2020-01-28] MEDS ORDERED: Nail Polish Remover TOPIC ONE (08:30)
[2020-01-28] MEDS ORDERED: Sterile Water Irrig 1000ml IRRIG ONE (08:30)
[2020-01-28] MEDS ORDERED: LR 1000ml ONE (08:30)
[2020-01-28] MEDS ORDERED: NS Irrig 1000ml ONE (08:30)
[2020-01-28] MEDS ORDERED: Lidocaine 1% MPF 10mg/ml 5ml ONE (08:40)
--- NOTE | 2020-01-28 09:03 | Brief Operative Note ---
Immediate Post Operative Note Operative Note Pre-op Diagnosis: Hammertoe deformity fifth right digit Procedure: Hammertoe correction fifth right digit Post-op Diagnosis: same as pre-op Surgeon: Mukesh Anesthesia: MAC Specimen: yes Complications: none Condition: stable Fluids: 500 Estimated Blood Loss: none Drains: none Implant(s) used?: No Boni Mayorga DPM Jan 28, 2020 09:03
--- NOTE | 2020-01-28 09:09 | Anethesia Preoperative Eval ---
Anesthesia Pre-op PMH/ROS General ASA Score: ASA 2 Mallampati Score Class I : Soft palate, uvula, fauces, pillars visible Class II: Soft palate, uvula, fauces visible Class III: Soft palate, base of uvula visible Class IV: Only hard plate visible Mallampati Classification: Class II Surgeon: Mukesh Diagnosis: Hammertoe Surgical Procedure: Hammertoe correction Family History: no anesthesia problems Allergies: Coded Allergies: No Known Allergies (Unverified , 06/20/17) Medications: see eMAR Patient NPO?: Yes NPO Date: Jan 28, 2020 NPO Time: 00:01 Past Medical History Cardiovascular: Denies: HTN, CAD, PR, valve dz, arrhythmia, other Pulmonary: Denies: asthma, COPD, ASHOK, other Gastrointestinal/Genitourinary: Denies: GERD, CRI, ESRD, other Neurologic/Psychiatric: Reports: depression/anxiety; Denies: dementia, CVA, TIA, other Endocrine: Denies: DM, hypothyroidism, steroids, other HEENT: Denies: cataract (L), cataract (R), glaucoma, MENOMINEE (L), MENOMINEE (R), other Hematology/Immune: Denies: anemia, DVT, bleeding disorder, other Musculoskeletal/Integumentary: Denies: OA, RA, DJD, DDD, edema, other PSxH Narrative: cataract surgery Anesthesia Pre-op Phys. Exam Physician Exam Last Vital Signs Date Time Temp Pulse Resp B/P (MAP) Pulse Ox O2 Delivery O2 Flow Rate FiO2 01/28/20 07:54 Room Air 01/28/20 07:33 97.1 75 18 122/69 99 Constitutional: NAD Neurologic: CN 2-12 intact Cardiovascular: RRR Gastrointestinal: S/NT/ND Airway Exam Mallampati Classification 2 Mallampati Score: Class II MO: full ROM: full Dentures: no upper, no lower Anesthesia Pre-op A/P Studies Pre-op Studies: EKG - sr Risk Assessment & Plan Assessment: covid neg Plan: mac Status Change Before Surgery: No Pre-Antibiotics Drug: ancef Given Within 1 Hr of Incision: Yes Time Given: 08:30 Mary Amador CRNA Jan 28, 2020 09:09
--- NOTE | 2020-01-28 09:10 | Immediate Post-Op Evaluation ---
Immediate Post-Op Evalulation Immediate Post-Op Evalulation Procedure: hammer toe correction rigth 5th digit Date of Evaluation: Jan 28, 2020 Time of Evaluation: 09:05 IV Fluids: 500 Blood Pressure Systolic: 102 Blood Pressure Diastolic: 50 Pulse Rate: 74 Respiratory Rate: 14 O2 Sat by Pulse Oximetry: 98 Temperature (Fahrenheit): 97.0 Nausea: No Vomiting: No Patient Status: awake, reacts, patent Hydration Status: adequate Drug: ancef Given Within 1 Hr of Incision: Yes Time Given: 08:30 Mary Amador CRNA Jan 28, 2020 09:10
--- NOTE | 2020-01-28 09:17 | 48 Hour Post Anesthesia Eval ---
Post Anesthesia Evaluation Procedure: hammer toe correction rigth 5th digit Date of Evaluation: Jan 28, 2020 Time of Evaluation: 09:16 Blood Pressure Systolic: 120 0: 50 Pulse Rate: 74 Respiratory Rate: 14 O2 Sat by Pulse Oximetry: 98 Airway: patent Nausea: No Vomiting: No Hydration Status: adequate Cardiopulmonary Status: stable Mental Status/LOC: patient returned to baseline Post-Anesthesia Complications: none Follow-up care needed: N/A Mary Amador CRNA Jan 28, 2020 09:17
--- NOTE | 2020-01-28 12:00 | History and Physical Report ---
DATE OF ADMISSION: 01/28/2020 HISTORY OF PRESENT ILLNESS: This is a 69-year-old white female who is admitted today for an elective right foot surgery. The patient has been under my care for many years and had underwent multiple bilateral foot surgeries in the past. She has been complaining of pain from her fifth right digit for the past 4 months. The conservative treatment which consisted of padding and shoe-gear modifications failed to alleviate the pain relief and the patient was consulted on surgery. PAST MEDICAL HISTORY: Remarkable for bipolar disorder, hypercholesterolemia, hypothyroidism, and gastroesophageal reflux disorder. MEDICATIONS: Coreg, Synthroid, Nexium, Crestor, and Abilify. ALLERGIES: No known drug allergies. PODIATRIC PHYSICAL EXAMINATION: VASCULAR: The dorsalis pedis and posterior tibial arteries are equally palpable measuring 2/4 bilaterally. Capillary filling time is less than 4 seconds to all digits bilaterally. Homans sign is negative. Mild varicosities are noted bilateral lower extremities. NEUROLOGICAL: Reflexes, Achilles, and patellar are intact measuring 2/4 bilaterally. Sensation, proprioception, and vibration are all intact bilateral lower extremities. Babinski is negative. Clonus is absent bilaterally. MUSCULOSKELETAL: An adductovarus hammertoe deformity of the fifth right digit. There is also exuberant bone noted over the second right digit medially. No other skeletal deformities are noted. All joint range of motion are full and pain free bilaterally. DERMATOLOGICAL: There is erythema overlying the fifth digit secondary to hammertoe deformity at the level of the proximal interphalangeal joint. Multiple scars overlying all digits bilaterally are noted from prior surgeries. No ulcerations or any other dermatological lesions are present bilaterally. All nails are present and healthy bilaterally. ASSESSMENT: Hammertoe deformity, fifth right digit. PLAN: The patient is admitted today for outpatient correction of her painful fifth right digit. Risks, complications, and alternatives were discussed with the patient again. Postoperative instructions were given. Postoperative medications were dispensed to the patient. The patient elected to proceed with surgery. Boni Mayorga D.P.M. DR: Tiffany JOB#: [id number] CC:
--- NOTE | 2020-01-28 12:45 | Operative Note - Dictated ---
DATE OF OPERATION: 01/28/2020 SURGEON: Boni Mayorga DPM. ANESTHESIOLOGIST: Mary Amador CRNA. ANESTHESIA: Local standby. PREOPERATIVE DIAGNOSIS: Hammertoe deformity, fifth right digit. POSTOPERATIVE DIAGNOSIS: Hammertoe deformity, fifth right digit. PROCEDURE PERFORMED: Arthroplasty, fifth right proximal interphalangeal joint. DESCRIPTION OF THE OPERATION: The patient was brought to the operating room and was placed on the operating room table in the supine position. IV sedation was administered by the anesthesiologist. Local anesthesia consisting of 0.5% Marcaine plain total of 5 mL was administered to the fifth right digit. An ankle tourniquet was applied to the right lower extremity. The foot was prepped and draped in the usual sterile manner. An Esmarch bandage was then utilized to exsanguinate the blood and the right ankle tourniquet was inflated to 250 mmHg. Attention was directed to the fifth right digit where an approximately two converging semi-elliptical skin incisions were performed centered over the proximal interphalangeal joint. The skin ellipse was excised in total. The wound was then dissected down to the level of the proximal interphalangeal joint utilizing sharp and blunt dissection with care being taken to cauterize and ligate all bleeders. At the level of the joint, transverse tenotomy was performed. The extensor tendon was reflected proximally. The head of the proximal phalanx was exposed. The collateral ligaments were severed. Utilizing a sagittal saw, the head of the proximal phalanx was resected in total. The remaining bone was rasped smooth. The wound was copiously flushed utilizing sterile saline. At this point, the extensor tendon was reapproximated utilizing 4-0 Vicryl in a simple interrupted type stitch. The skin was then reapproximated utilizing 5-0 nylon in a simple interrupted type stitch. The wound was dressed utilizing an Adaptic 4 x 4 gauze, and 3 inch Muna. Right ankle tourniquet was deflated and vascular supply was noted to all digits right foot. The patient tolerated the procedure well and left the operating room with all vital signs stable. James RoseJostin DR: Tiffany JOB#: [id number] CC:
== END 2020-01-28 11:40 | disposition home or self-care (01) ==
LOC: SUR 07:03
DX: M20.41 Other hammer toe(s) (acquired), right foot (principal); F31.9 Bipolar disorder, unspecified; E78.00 Pure hypercholesterolemia, unspecified; E03.9 Hypothyroidism, unspecified; K21.9 Gastro-esophageal reflux disease without esophagitis; Z79.899 Other long term (current) drug therapy; F32.9 Major depressive disorder, single episode, unspecified; F41.9 Anxiety disorder, unspecified
CPT/HCPCS: 28285; 94003; J0690; J1100; J2250; J2704; J3010; J3490; J7120; U0002; 94150